=== PATIENT | male | born 1980 | race Caucasian/White ===

== ENCOUNTER 2019-01-19 23:34 | Emergency (ER) | payer OTHER ==
[~2019-01-19] VITALS: Ht 180.3 cm; Wt 88.5 kg
== END 2019-01-20 06:03 | disposition home or self-care (01) ==
LOC: ED 23:34
DX: F11.10 Opioid abuse, uncomplicated (principal); F17.200 Nicotine dependence, unspecified, uncomplicated

== ENCOUNTER 2019-01-20 09:18 | Inpatient (IN) | payer OTHER ==
[~2019-01-20] VITALS: Ht 180.3 cm; Wt 88.0 kg
--- NOTE | ~2019-01-20 | EKG ---
[place], [place] ELECTROCARDIOGRAM REPORT NAME: RUIZ MÉNDEZ UNIT #: [id number] ROOM: 529 DOCTOR: BALDEMAR DRAFT REPORT BIRTHDATE: [birth year] [facility] Test Date: 2019-01-20 Test Time: 11:51:55 Pat Name: RUIZ MÉNDEZ Department: Room: 529 Gender: M Manager Film: Damaris Gtz : 1980 Requested By: SAMANTHA CHÁVEZ Order Number: [id number] Reading MD: Klasu Parks MD Measurements Intervals [place] Rate: 61 P: 33 MD: 111 QRS: 72 QRSD: 91 T: 40 QT: 414 QTc: 417 Interpretive Statements Sinus rhythm Atrial premature complex Borderline short MD interval ST elev, probable normal early repol pattern Electronically Signed On 01-23-2019 8:08:57 PDT by Klaus Parks MD CM:EKGRPT:ELECTROCARDIOGRAM REPORT [id number] SAMANTHA MCDERMOTT DRAFT REPORT SAMANTHA CHÁVEZ
[2019-01-20 09:30] VITALS: BP 134/64
[2019-01-20 11:34] LABS: BILIRUBIN NEGATIVE (NEGATIVE); BLOOD NEGATIVE (NEGATIVE); CLARITY CLEAR (CLEAR); COLOR YELLOW (YELLOW); GLUCOSE NEGATIVE (NEGATIVE); KETONE NEGATIVE (NEGATIVE); LEUKO ESTERASE NEGATIVE (NEGATIVE); NITRITE NEGATIVE (NEGATIVE); PH 6.5 (5.0-9.0); SPECIFIC GRAVITY <= 1.005 (1.005-1.030); UROBILINOGEN 0.2 E.U./dl (0.2-1.0)
[2019-01-20 11:38] LABS: URINE AMPHETAMINES < 1000 (1000ng/ml); URINE BARBITURATES < 200 (200ng/ml); URINE BENZODIAZEPINES < 200 (200ng/ml); URINE CANNABINOIDS (THC) < 50 (50ng/ml); URINE COCAINE > 300 (300ng/ml); URINE METHADONE < 300 (300ng/ml); URINE OPIATES < 300 (300ng/ml)
[2019-01-20 11:43] LABS: URINE PHENCYCLIDINE < 25 (25ng/ml)
[2019-01-20 12:00] VITALS: BP 120/64
[2019-01-20 12:00] LABS: BACTERIA TRACE; RBC 0-2 rbc/hpf (0-2); WBC 0-2 wbc/hpf (0-5)
[2019-01-20 13:30] LABS: ALBUMIN 4.1 gm/dl (3.1-4.5); ALKALINE PHOSPHATASE 96 U/L (45-117); BUN 9 mg/dl (7-24); CHLORIDE 111 mmol/L (98-107); CREATININE 0.89 mg/dL (0.70-1.30); POTASSIUM 4.4 mmol/L (3.5-5.1); SGOT/AST 28 IU/L (3-35); SGPT/ALT 46 U/L (12-78); SODIUM 142 mmol/L (136-145); TOTAL PROTEIN 7.5 gm/dL (6.4-8.2)
[2019-01-20 13:32] LABS: ETHYL ALCOHOL < 3.0 mg/dl (<3)
[2019-01-20 16:00] VITALS: BP 118/48
[2019-01-20 20:00] VITALS: BP 120/67
[2019-01-21] VITALS: BP 128/79
[2019-01-21 08:00] VITALS: BP 108/58
[2019-01-21 12:00] VITALS: BP 114/53
== END 2019-01-21 16:35 | disposition left against medical advice (07) | DRG 894 ==
LOC: 5E 09:18
PROVIDERS: Internal Medicine; ADMIT Internal Medicine
DX: F11.10 Opioid abuse, uncomplicated (principal); F14.10 Cocaine abuse, uncomplicated; R73.9 Hyperglycemia, unspecified; Z53.21 Procedure and treatment not carried out due to patient leaving prior to being seen by health care provider; R25.2 Cramp and spasm; F17.210 Nicotine dependence, cigarettes, uncomplicated; Z71.6 Tobacco abuse counseling